=== PATIENT | female | born 1935 | race Hispanic/Latino ===

== ENCOUNTER → 2017-04-17 | Outpatient (CLI) | payer MEDICARE, OTHER ==
--- NOTE | 2017-04-23 08:20 | Diagnostic Imaging Report ---
#[id number] - MGSCRNBI #BILATERAL DIGITAL SCREENING MAMMOGRAM WITH CAD: 04/17/2017 CLINICAL: Routine screening. Comparison is made to exams dated: 04/30/2016 mammogram, 05/08/2015 mammogram and 05/31/2014 mammogram - [facility]. Current study contains 4 films. The tissue of both breasts is heterogeneously dense. This may lower the sensitivity of mammography. Current study was also evaluated with a Computer Aided Detection (CAD) system. There are benign vascular calcifications in both breasts. There also are benign scattered calcifications in both breasts. A cardiac device now is present in the left chest wall. No significant masses, calcifications, or other findings are seen in either breast. There has been no significant interval change. IMPRESSION: BENIGN There is no mammographic evidence of malignancy. A 1 year screening mammogram is recommended. The patient will be notified by letter of the results. Tobias Nicole Jr., D.O. cw/:04/22/2017 13:22:22 Beach Lifeguard: Nissa KOLB(Rosa)(M), [facility] letter sent: Compared to Prior B9 Mammogram BI-RADS: 2 Benign
== END ==
LOC: MAMMO 09:38
PROVIDERS: ATTEND Internal Medicine
DX: Z12.31 Encounter for screening mammogram for malignant neoplasm of breast (principal)
CPT/HCPCS: 77067

== ENCOUNTER 2017-05-29 20:55 | Emergency (ER) | payer MEDICARE, OTHER ==
[~2017-05-29] VITALS: Ht 152.4 cm; Wt 79.8 kg
--- OUTSIDE RECORDS SUMMARY | 2017-05-29 20:57 | XMS REPORT ---
[facility] Address Unknown Phone Unavailable Care Team Providers Care Embosser Apprentice Name Role Phone JOHNNIE HUBBARD Unavailable Unavailable Problems This patient has no known problems. Allergies, Adverse Reactions, Alerts This patient has no known allergies or adverse reactions. Medications This patient has no known medications. Results Test Description Test Time Test Comments Text Results Atomic Results Result Comments MAMMOGRAM DIGITAL SCR BI [place] [id number] Patient Name: MARVIN CORTEZ MR #: [id number] : 1935 Age/Sex: 82/F Req #: [id number] [facility] Physician: Ordered by: JOHNNIE HUBBARD MD Report #: [id number] Location: MAMMO Room/Bed: Procedure: [id number] MG/MAMMOGRAM DIGITAL SCR BI Exam Date: 04/17/17 Exam Time: 0940 REPORT STATUS: Signed #[id number] - MGSCRNBI #BILATERAL DIGITAL SCREENING MAMMOGRAM WITH CAD: 04/17/2017 CLINICAL : Routine screening. Comparison is made to exams dated: 04/30/2016 mammogram, 05/08/2015 mammogram and 05/31/2014 mammogram - [facility]. Current study contains 4 films. The tissue of both breasts is heterogeneously dense. This may lower the sensitivity of mammography. Current study was also evaluated with a Computer Aided Detection (CAD) system. There are benign vascular calcifications in both breasts. There also are benign scattered calcifications in both breasts. A cardiac device now is present in the left chest wall. No significant masses, calcifications, or other findings are seen in either breast. There has been no significant interval change. IMPRESSION: BENIGN There is no mammographic evidence of malignancy. A 1 year screening mammogram is recommended. The patient will be notified by letter of the results. Genevieve Nicole Jr., D.O. cw/:04/22/2017 13:22:22 Packaging Sales Consultant: Nissa KOLB(Rosa)(M), [facility] letter sent: Compared to Prior B9 Mammogram BI-RADS: 2 Benign Dictated By: GENEVIEVE NICOLE DO 1322 Transcribed By: CRISS on 1322 COPY TO: JOHNNIE HUBBARD MD
--- NOTE | 2017-05-29 22:08 | Diagnostic Imaging Report ---
EXAMINATION: Head CT without contrast. HISTORY:Status post fall. COMPARISON:None. TECHNIQUE: Multidetector axial images were obtained from the foramen magnum to the vertex without contrast. The images were reconstructed using brain and bone algorithms. Thin section brain images were reformatted into coronal and sagittal planes. Intravenous contrast: None IMAGE QUALITY: Acceptable. FINDINGS: Skull/scalp: Small posterior parieto-occipital scalp edema/hematoma. No acute depressed or displaced calvarial fracture. Parenchyma: Nonspecific few, scattered supratentorial white matter hypodensity are likely related to small vessel ischemic changes. No acute hemorrhage, mass or acute major vascular territorial infarct. Arteries: No density suggestive of thrombosis. Dural sinuses: No abnormal density suggestive of thrombosis. Ventricles: No hydrocephalus or displacement. Extra-axial spaces: No abnormal density. Brain volume: Normal for age. Craniocervical junction: No mass, Chiari malformation, or basilar invagination. Sella: No mass. Paranasal/mastoid sinuses: Imaged portions unremarkable. IMPRESSION: 1. Small posterior parieto-occipital scalp edema. No acute fracture. 2. No acute posttraumatic intracranial abnormality. 3. Mild supratentorial white matter microvascular ischemic changes. Signed by: Dr. Mariana Bernardo M.D. on 05/29/2017 10:05 PM
--- NOTE | 2017-05-29 22:14 | Diagnostic Imaging Report ---
History: Status post fall. Comparison studies: None Technique: Axial images were obtained through the cervical region.. Coronal and sagittal images reconstructed from the axial data.. Intravenous contrast: None Findings: Fractures: None. Soft tissue injuries: None. Atlantoaxial articulation: Intact. Alignment: Loss of normal cervical lordosis is either positional or due to muscle spasm. Mild levocurvature of the cervical spine is positional, head is tilted. Cervicomedullary junction: No abnormalities. The foramen magnum is patent. Soft tissues: Atherosclerotic calcification in bilateral carotid bulb. Vertebrae: Diffuse osseous demineralization. No fractures, infection or neoplasm. Degenerative changes: C3-C4: Posterior disc osteophyte complex results in mild canal stenosis. Mild right foraminal stenosis due to facet and uncovertebral arthrosis. C4-C5: Posterior disc osteophyte complex without canal stenosis. Mild right foraminal stenosis due to facet and uncovertebral arthrosis. C6-C7: Mild right foraminal stenosis due to facet and uncovertebral arthrosis.. IMPRESSION: 1. No acute cervical spine fracture. Loss of normal cervical lordosis is either positional or due to muscle spasm. 2. Ligament, spinal cord and or vascular abnormalities cannot be excluded on the basis of this examination. 3. Mild cervical spondylosis as detailed above. Signed by: Dr. Mariana Bernardo M.D. on 05/29/2017 10:10 PM
[2017-05-29 22:29] LABS: BASOPHILS % 0.4 % (0.0-1.0); EOSINOPHILS # (AUTO) 0.1 (0.0-0.4); EOSINOPHILS % 2.4 % (0.0-6.0); HEMATOCRIT 32.1 % (34.2-44.1); HEMOGLOBIN 10.2 g/dL (12.0-16.0); LYMPHOCYTES # (AUTO) 1.5 (1.0-3.2); LYMPHOCYTES % 28.7 % (18.0-39.1); MEAN CORPUSCULAR HEMOGLOBIN 29.6 pg (28-32); MEAN CORPUSCULAR HGB CONC 31.8 g/dL (31-35); MONOCYTES # (AUTO) 0.4 (0.2-0.8); MONOCYTES % 7.3 % (4.4-11.3); NEUTROPHILS # (AUTO) 3.3 (2.1-6.9); PLATELET COUNT 190 x10e3/uL (140-360); RED BLOOD COUNT 3.45 x10e6/uL (3.6-5.1); RED CELL DISTRIBUTION WIDTH 15.3 % (11.7-14.4)
[2017-05-29 22:38] LABS: INR 1.07; PARTIAL THROMBOPLASTIN TIME 32.8 seconds (23.8-35.5); PROTHROMBIN TIME 13.1 seconds (11.9-14.5)
[2017-05-29 22:48] LABS: ALBUMIN 3.5 g/dL (3.5-5.0); ALBUMIN/GLOBULIN RATIO 1.1 (0.8-2.0); ANION GAP 11.4 mmol/L (8-16); CALCIUM 10.1 mg/dL (8.4-10.2); CREATININE, SERUM 1.07 mg/dL (0.57-1.11); POTASSIUM 4.4 mmol/L (3.5-5.1)
[2017-05-29 23:48] VITALS: BP 166/86
== END 2017-05-29 23:55 | disposition home or self-care (01) ==
LOC: ER 20:55
DX: S16.1XXA Strain of muscle, fascia and tendon at neck level, initial encounter (principal); S00.03XA Contusion of scalp, initial encounter; W01.0XXA Fall on same level from slipping, tripping and stumbling without subsequent striking against object, initial encounter; Y93.01 Activity, walking, marching and hiking; Y92.410 Unspecified street and highway as the place of occurrence of the external cause; Z79.01 Long term (current) use of anticoagulants; I10 Essential (primary) hypertension; Z95.0 Presence of cardiac pacemaker
CPT/HCPCS: 36415; 70450; 72125; 80053; 85025; 85610; 85730; 93005; 99284

== ENCOUNTER 2017-06-15 17:51 | Emergency (ER) | payer MEDICARE, OTHER ==
[~2017-06-15] VITALS: Ht 152.4 cm; Wt 79.8 kg
--- OUTSIDE RECORDS SUMMARY | 2017-06-15 17:53 | XMS REPORT | Continuity of Care Document ---
Author Author [facility] Organization [facility] Address [address] [place] [address] Phone Unavailable Care Team Providers Care Vocational Aide Name Role Phone JOHNNIE HUBBARD MD PCP Insurance Providers Guarantor Pat Cortez Address [address] [place] [address] Email [email or web address] [employer] Policy Number [id number] Subscriber's Name CortezPat richardson Relationship 18 Self / Same As Patient Group Name RETIRED Effective Date 14 [facility] [employer] Improvement [employer] Policy Number [id number] Subscriber's Name Pat Cortez Relationship 18 Self / Same As Patient Group Number [id number] Group Name RETIRED Effective Date 01 Advance Directives Directive Response Recorded Date/Time Does the patient have an advance directive? No 07/05/08 3:20am If yes, is advance directive on file with [facility]? No 07/05/08 3:20am If not on file with [facility] will patient provide a copy? Yes 05/29/17 10:38pm Do you have a Directive to Physician? No 05/29/17 10:38pm Do you have a Medical Power of Filling And Stapling Machine Operator? No 05/29/17 10:38pm Do you have an out of hospital Do Not Resuscitate Order? No 05/29/17 10:38pm Do you have any special needs we should be aware of? No 05/29/17 10:38pm Do you have a support person here with you today? Yes 05/29/17 10:38pm Did patient receive Notice of Privacy Practices? Yes 05/29/17 10:38pm Did patient receive patient rights and responsibilities? Yes 05/29/17 10:38pm Problems No problem information available. Medications No medication information available. Social History No social history information available. Hospital Discharge Instructions No hospital discharge instruction information available. Plan of Care Discharge Date 05/29/17 11:55pm Disposition HOME, SELF-CARE Condition at Discharge Stable Instructions/Education Provided Concussion/Head Injury - Adult Forms Provided Work/School Excuse Prescriptions See Medication Section Referrals JOHNNIE HUBBARD MD Address: [address] [place] [id number] Additional Instructions/Education REST; ICE WOUND ON HEAD NEEDED; TYLENOL/MOTRIN FOR PAIN; FOLLOW UP WITH YOUR PCP; Functional Status No functional status information available. Allergies, Adverse Reactions, Alerts No known allergies. Immunizations No immunization information available. Vital Signs Acute Vital Signs Vital Response Date/Time Pulse Pulse Rate (adult) 60 bpm (60 - 90) 05/29/2017 11:48pm Respiratory Rate 16 bpm (12 - 24) 05/29/2017 11:48pm Blood Pressure 166/86 mm Hg 05/29/2017 11:48pm Height 5 ft 0 in 05/29/2017 9:00pm Weight 176 lb 05/29/2017 9:00pm Body Mass Index 34.4 kg/m^2 05/29/2017 9:00pm Results Laboratory Results Test Name Result Units Flags Reference Collection Date/Time Result Date/ Time Comments White Blood Count 5.33 x10e3/uL 4.8-10.8 05/29/2017 9:48pm 05/29/2017 10:30pm Red Blood Count 3.45 x10e6/uL L 3.6-5.1 05/29/2017 9:48pm 05/29/2017 10: 30pm Hemoglobin 10.2 g/dL L 12.0-16.0 05/29/2017 9:48pm 05/29/2017 10:30pm Hematocrit 32.1 % L 34.2-44.1 05/29/2017 9:48pm 05/29/2017 10:30pm Mean Corpuscular Volume 93.0 fL 81-99 05/29/2017 9:48pm 05/29/2017 10: 30pm Mean Corpuscular Hemoglobin 29.6 pg 28-32 05/29/2017 9:48pm 05/29/2017 10:30pm Mean Corpuscular Hemoglobin Concent 31.8 g/dL 31-35 05/29/2017 9:48pm 05/29/2017 10:30pm Red Cell Distribution Width 15.3 % H 11.7-14.4 05/29/2017 9:48pm 2017 10:30pm Platelet Count 190 x10e3/uL 140-360 05/29/2017 9:48pm 05/29/2017 10: 30pm Neutrophils (%) (Auto) 61.0 % 38.7-80.0 05/29/2017 9:48pm 05/29/2017 10 :30pm Lymphocytes (%) (Auto) 28.7 % 18.0-39.1 05/29/2017 9:48pm 05/29/2017 10 :30pm Monocytes (%) (Auto) 7.3 % 4.4-11.3 05/29/2017 9:48pm 05/29/2017 10: 30pm Eosinophils (%) (Auto) 2.4 % 0.0-6.0 05/29/2017 9:48pm 05/29/2017 10: 30pm Basophils (%) (Auto) 0.4 % 0.0-1.0 05/29/2017 9:48pm 05/29/2017 10: 30pm IM GRANULOCYTES % 0.2 % 0.0-1.0 05/29/2017 9:48pm 05/29/2017 10:30pm Neutrophils # (Auto) 3.3 2.1-6.9 05/29/2017 9:48pm 05/29/2017 10: 30pm Lymphocytes # (Auto) 1.5 1.0-3.2 05/29/2017 9:48pm 05/29/2017 10: 30pm Monocytes # (Auto) 0.4 0.2-0.8 05/29/2017 9:48pm 05/29/2017 10:30pm Eosinophils # (Auto) 0.1 0.0-0.4 05/29/2017 9:48pm 05/29/2017 10: 30pm Basophils # (Auto) 0.0 0.0-0.1 05/29/2017 9:48pm 05/29/2017 10:30pm Absolute Immature Granulocyte (auto 0.01 x10e3/uL 0-0.1 05/29/2017 9: 48pm 05/29/2017 10:30pm Prothrombin Time 13.1 seconds 11.9-14.5 05/29/2017 9:48pm 05/29/2017 10 :38pm Prothromb Time International Ratio 1.07 05/29/2017 9:48pm 2017 10:38pm Oral Anticoagulant Therapy INR Values: 1. Low Intensity Therapy 1.5 - 2.0 2. Moderate Intensity Therapy 2.0 - 3.0 3. High Intensity Therapy(1) 2.5 - 3.5 4. High Intensity Therapy(2) 3.0 - 4.0 5. Panic Value INR > 5.0 Activated Partial Thromboplast Time 32.8 seconds 23.8-35.5 05/29/2017 9: 48pm 05/29/2017 10:39pm Sodium Level 142 mmol/L 136-145 05/29/2017 9:48pm 05/29/2017 10:49pm Potassium Level 4.4 mmol/L 3.5-5.1 05/29/2017 9:48pm 05/29/2017 10: 49pm Chloride Level 113 mmol/L H 98-107 05/29/2017 9:48pm 05/29/2017 10:49pm Carbon Dioxide Level 22 mmol/L 22-29 05/29/2017 9:48pm 05/29/2017 10: 49pm Anion Gap 11.4 mmol/L 8-16 05/29/2017 9:48pm 05/29/2017 10:49pm Blood Urea Nitrogen 21 mg/dL 7-05/29/2017 9:48pm 05/29/2017 10:49pm Creatinine 1.07 mg/dL 0.57-1.11 05/29/2017 9:48pm 05/29/2017 10:49pm BUN/Creatinine Ratio 20 6-25 05/29/2017 9:48pm 05/29/2017 10:49pm Estimat Glomerular Filtration Rate 49 ML/MIN L 60- 05/29/2017 9:48pm 01/2018 10:49pm Ranges were taken from the National Kidney Disease Education Program and the National Kid[employer] literature. Reference ranges: 60 or greater: Normal 16-59 (for 3 consecutive months): Chronic kidney disease 15 or less: Kidney failure Glucose Level 98 mg/dL 74-118 05/29/2017 9:48pm 05/29/2017 10:49pm Calcium Level 10.1 mg/dL 8.4-10.2 05/29/2017 9:48pm 05/29/2017 10:49pm Total Bilirubin 0.2 mg/dL 0.2-1.2 05/29/2017 9:48pm 05/29/2017 10:49pm Aspartate Amino Transf (AST/SGOT) 18 IU/L 5-34 05/29/2017 9:48pm 2017 10:49pm Alanine Aminotransferase (ALT/SGPT) 17 IU/L 0-55 05/29/2017 9:48pm 01/2018 10:49pm Total Protein 6.8 g/dL 6.5-8.1 05/29/2017 9:48pm 05/29/2017 10:49pm Albumin 3.5 g/dL 3.5-5.0 05/29/2017 9:48pm 05/29/2017 10:49pm Globulin 3.3 g/dL 2.3-3.5 05/29/2017 9:48pm 05/29/2017 10:49pm Albumin/Globulin Ratio 1.1 0.8-2.0 05/29/2017 9:48pm 05/29/2017 10: 49pm Alkaline Phosphatase 88 IU/L 40-150 05/29/2017 9:48pm 05/29/2017 10: 49pm Procedures Procedure Status Date Provider(s) Computed tomography of brain without radiopaque contrast Active 05/29/17 TEE KEATING NP Computed tomography of cervical spine without contrast Active 05/29/17 LUIS MIGUEL MARTINEZ MD Encounters Encounter Location Arrival/Admit Date Discharge/Depart Date Attending Provider Registered Emergency Room [facility] 05/29/17 8:55pm LUIS MIGUEL MARTINEZ MD Registered Clinic [facility] 04/17/17 9:38am JOHNNIE HUBBARD MD
[2017-06-15] MEDS ORDERED: TRAMADOL HCL 50 MG TAB PO ONE (18:15)
[2017-06-15] MEDS ORDERED: IBUPROFEN 600 MG TAB PO STA (18:30)
--- NOTE | 2017-06-15 20:12 | Diagnostic Imaging Report ---
FOOT RIGHT COMPLETE HISTORY: Pain fracture COMPARISON: None FINDINGS: Bones: No displaced fracture. Osseous alignment is within normal limits. Mild demineralization. Joints: Scattered degenerative changes of the mid and forefoot. Soft tissues: The soft tissues appear unremarkable. IMPRESSION: No acute radiographic abnormality. Signed by: Dr. Carmelo Estrada M.D. on 06/15/2017 8:09 PM
[2017-06-15 21:02] VITALS: BP 163/74
== END 2017-06-15 20:29 | disposition home or self-care (01) ==
LOC: ER 17:51
DX: S90.111A Contusion of right great toe without damage to nail, initial encounter (principal); W22.8XXA Striking against or struck by other objects, initial encounter; Y92.008 Other place in unspecified non-institutional (private) residence as the place of occurrence of the external cause; I10 Essential (primary) hypertension; E11.9 Type 2 diabetes mellitus without complications; E78.5 Hyperlipidemia, unspecified; Z95.810 Presence of automatic (implantable) cardiac defibrillator
CPT/HCPCS: 99284

== ENCOUNTER → 2018-05-05 | Outpatient (CLI) | payer MEDICARE, OTHER | LOC: MAMMO 12:52 | PROVIDERS: ATTEND Internal Medicine | DX: Z12.31 Encounter for screening mammogram for malignant neoplasm of breast (principal) | CPT/HCPCS: 77067 ==

== ENCOUNTER → 2021-04-26 | Outpatient (CLI) | payer MEDICARE | LOC: MAMMO 09:40 | PROVIDERS: ATTEND Internal Medicine | DX: N63.10 Unspecified lump in the right breast, unspecified quadrant (principal); N64.4 Mastodynia | CPT/HCPCS: 77066 ==

== ENCOUNTER → 2021-05-08 | Outpatient (CLI) | payer MEDICARE | LOC: US 09:30 | PROVIDERS: ATTEND Internal Medicine | DX: N63.10 Unspecified lump in the right breast, unspecified quadrant (principal) | CPT/HCPCS: 88305; A4648 ==

== ENCOUNTER 2021-05-24 06:05 | Observation (INO) | payer MEDICARE, OTHER ==
[2021-05-22 10:24] LABS: BASOPHILS # (AUTO) 0.1 (0.0-0.1); BASOPHILS % 0.7 % (0.0-1.0); EOSINOPHILS # (AUTO) 0.2 (0.0-0.4); EOSINOPHILS % 2.3 % (0.0-6.0); HEMOGLOBIN 11.5 g/dL (12.0-16.0); LYMPHOCYTES # (AUTO) 1.6 (1.0-3.2); LYMPHOCYTES % 21.5 % (18.0-39.1); MEAN CORPUSCULAR HEMOGLOBIN 30.7 pg (28-32); MEAN CORPUSCULAR HGB CONC 31.1 g/dL (31-35); MEAN CORPUSCULAR VOLUME 98.7 fL (81-99); MONOCYTES # (AUTO) 0.6 (0.2-0.8); MONOCYTES % 7.6 % (4.4-11.3); NEUTROPHILS # (AUTO) 4.9 (2.1-6.9); NEUTROPHILS % 67.6 % (38.7-80.0); PLATELET COUNT 183 x10e3/uL (140-360); RED BLOOD COUNT 3.75 x10e6/uL (3.6-5.1); RED CELL DISTRIBUTION WIDTH 13.5 % (11.7-14.4)
[2021-05-22 10:58] LABS: ALBUMIN 3.6 g/dL (3.5-5.0); ALBUMIN/GLOBULIN RATIO 1.1 (0.8-2.0); ANION GAP 8.9 mmol/L (8-16); CALCIUM 10.9 mg/dL (8.4-10.2); POTASSIUM 4.9 mmol/L (3.5-5.1)
[~2021-05-24] VITALS: Ht 160 cm; Wt 74.4 kg
[~2021-05-24 06:05] MED LIST: ALENDRONATE SOD70 MG PO; ALTOPREV40 MG PO; AMLODIPINE BESYL5 MG PO; ARICEPT5 MG PO; CLONIDINE HCL0.2 MG PO; ELIQUIS5 MG PO; GLIMEPIRIDE2 MG PO; LOSARTAN POTAS100 MG PO; METOPROLOL SUCC25 MG PO; NAMENDA10 MG PO; OXYBUTYNIN CHLOR5 MG PO; ULTRAM 50MG50 MG PO; VESICARE5 MG PO
[2021-05-24] MEDS ORDERED: BUPIVACAINE HCL 0.25% 10ML MPF VIAL INJ ONE (10:00)
[2021-05-24] MEDS ORDERED: LIDOCAINE HCL 2% LOCAL INJ 5 ML SDV VIAL INJ ONE (12:15)
[2021-05-24] MEDS ORDERED: DEXAMETHASONE SOD PHOS INJ 4 MG/ML SDV ONE (12:15)
[2021-05-24] MEDS ORDERED: KETOROLAC TROMETHAMINE 30 MG/ML VIAL ONE (12:15)
[2021-05-24] MEDS ORDERED: PROPOFOL IV EMULSION 10 MG/ML 20 ML VIAL ONE (12:15)
[2021-05-24] MEDS ORDERED: ONDANSETRON HCL INJ 2MG/ML 2ML 2 MG/ML VIAL ONE (12:15)
[2021-05-24] MEDS ORDERED: SEVOFLURANE INHAL SOLN 250 ML PEN BTL ONE (12:15)
[2021-05-24] MEDS ORDERED: POVIDONE IODINE 0.05% 0.05 % ML PO ONE (12:15)
[2021-05-24] MEDS ORDERED: MIDAZOLAM HCL 2 MG/2 ML VIAL ONE (13:14)
[2021-05-24] MEDS ORDERED: FENTANYL CITRATE/PF 100MCG/2 ML INJ ONE ×2 (13:14→14:24)
[2021-05-24] MEDS ORDERED: CLONIDINE HCL 0.1 MG TAB PO PRN (13:15)
[2021-05-24] MEDS ORDERED: ACETAMINOPHEN/CODEINE 300MG - 30MG TAB PO PRN (13:15)
[2021-05-24] MEDS ORDERED: ONDANSETRON HCL INJ 2MG/ML 2ML 2 MG/ML VIAL IV PRN (13:15)
[2021-05-24 17:09] VITALS: BP 162/74
[2021-05-24 17:17] VITALS: BP 162/74
[2021-05-24] MEDS: TRAMADOL HCL 50 MG TAB PO SCH ×2 (17:30→20:55)
[2021-05-24] MEDS: Cefoxitin 1 GM in SODIUM CHLORIDE 0.9% 50ML 50 ML IV SCH (17:42)
[2021-05-24] MEDS: SODIUM CHLORIDE 0.9% 1000ML 1,000 ML IV SCH (17:42)
[2021-05-24] MEDS: MEMANTINE 10 MG TAB PO SCH (17:51)
[2021-05-24] MEDS: OXYBUTYNIN CHLORIDE 5 MG TAB PO SCH (17:51)
[2021-05-24] MEDS: AMLODIPINE BESYLATE 5 MG TAB PO SCH (18:42)
[2021-05-24 20:00] VITALS: BP 105/65
[2021-05-24] MEDS ORDERED: DONEPEZIL HCL 5 MG TAB PO SCH (21:00)
[2021-05-25] VITALS: BP 100/57
[2021-05-25] MEDS: Cefoxitin 1 GM in SODIUM CHLORIDE 0.9% 50ML 50 ML IV SCH ×2
[2021-05-25 04:00] VITALS: BP 120/55
[2021-05-25 05:55] LABS: BASOPHILS % 0.3 % (0.0-1.0); HEMATOCRIT 27.3 % (34.2-44.1); HEMOGLOBIN 8.5 g/dL (12.0-16.0); LYMPHOCYTES % 12.3 % (18.0-39.1); MEAN CORPUSCULAR HEMOGLOBIN 30.7 pg (28-32); MEAN CORPUSCULAR HGB CONC 31.1 g/dL (31-35); MEAN CORPUSCULAR VOLUME 98.6 fL (81-99); MONOCYTES # (AUTO) 0.6 (0.2-0.8); MONOCYTES % 7.8 % (4.4-11.3); NEUTROPHILS # (AUTO) 6.2 (2.1-6.9); NEUTROPHILS % 79.2 % (38.7-80.0); PLATELET COUNT 165 x10e3/uL (140-360); RED BLOOD COUNT 2.77 x10e6/uL (3.6-5.1); RED CELL DISTRIBUTION WIDTH 13.1 % (11.7-14.4)
[2021-05-25 06:19] LABS: ANION GAP 9.3 mmol/L (8-16); CREATININE, SERUM 1.31 mg/dL (0.57-1.11); POTASSIUM 4.3 mmol/L (3.5-5.1)
[2021-05-25] MEDS: SODIUM CHLORIDE 0.9% 1000ML 1,000 ML IV SCH ×2 (06:43→09:15)
[2021-05-25] MEDS ORDERED: GLIMEPIRIDE 2 MG TAB PO SCH (07:30)
[2021-05-25 07:38] VITALS: BP 104/58
[2021-05-25 08:00] VITALS: BP 104/58
[2021-05-25] MEDS ORDERED: METOPROLOL SUCCINATE 25 MG TAB XL PO SCH (09:00)
[2021-05-25] MEDS ORDERED: SOLIFENACIN SUCCINATE 5 MG TAB PO SCH (09:00)
[2021-05-25] MEDS ORDERED: LOSARTAN POTASSIUM 100 MG TAB PO SCH (09:00)
[2021-05-25] MEDS: AMLODIPINE BESYLATE 5 MG TAB PO SCH (09:00)
[2021-05-25] MEDS: MEMANTINE 10 MG TAB PO SCH (09:06)
[2021-05-25] MEDS: OXYBUTYNIN CHLORIDE 5 MG TAB PO SCH (09:06)
[2021-05-25] MEDS: TRAMADOL HCL 50 MG TAB PO SCH (09:07)
== END 2021-05-25 11:30 | disposition home or self-care (01) ==
LOC: NM 06:05 → EDSTATUS 12:00 → PACU V 14:02 → MED/SURG 16:13
PROVIDERS: ADMIT Surgery; ATTEND Surgery
DX: C50.911 Malignant neoplasm of unspecified site of right female breast (principal); I10 Essential (primary) hypertension; E11.9 Type 2 diabetes mellitus without complications; Z20.822 Contact with and (suspected) exposure to COVID-19; Z01.818 Encounter for other preprocedural examination
CPT/HCPCS: 19307; 36415 ×3; 71046; 78195; 80048; 80053; 82948 ×2; 85025 ×2; 88304; A9541; G0378 ×2; J0694; J2250; J3010; J7030 ×2; U0002; 88307; 88342; J1100; J1885; J2001; J2405

== ENCOUNTER → 2023-12-26 | Day surgery (SDC) | payer MEDICARE, OTHER ==
[~2023-12-26] MED LIST changes: +ACETAMINOPHEN 1000 MG/100 ML 100 ML IV ONE; +CEFTRIAXONE 1 GM VIAL ONE; +DEXAMETHASONE SOD PHOS INJ 4 MG/ML SDV ONE; +ETOMIDATE 40 MG/ 20ML VIAL IV ONE; +IOPAMIDOL 610MG/1ML 300 MG/ML VIAL IV ONE; +LIDOCAINE HCL 2% LOCAL INJ 5 ML SDV VIAL INJ ONE; +NIFEDIPINE ER60 M1 PO; +ONDANSETRON HCL INJ 2MG/ML 2ML 2 MG/ML VIAL ONE; +PANTOPRAZOLE SO40 MG PO; +PROPOFOL IV EMULSION 10 MG/ML 20 ML VIAL ONE; +SYNTHROID50 MCG PO; +TROSPIUM CHLORI20 MG PO
[2023-12-26] MEDS: LACTATED RINGER'S 1,000 ML ONE (11:07)
[2023-12-26 11:14] LABS: BASOPHILS % 0.7 % (0.0-1.0); EOSINOPHILS # (AUTO) 0.3 (0.0-0.4); EOSINOPHILS % 5.6 % (0.0-6.0); HEMOGLOBIN 11.4 g/dL (12.0-16.0); LYMPHOCYTES # (AUTO) 1.5 (1.0-3.2); LYMPHOCYTES % 26.9 % (18.0-39.1); MEAN CORPUSCULAR HEMOGLOBIN 31.7 pg (28-32); MEAN CORPUSCULAR HGB CONC 30.8 g/dL (31-35); MEAN CORPUSCULAR VOLUME 102.8 fL (81-99); MONOCYTES # (AUTO) 0.4 (0.2-0.8); MONOCYTES % 6.7 % (4.4-11.3); NEUTROPHILS # (AUTO) 3.3 (2.1-6.9); NEUTROPHILS % 59.9 % (38.7-80.0); PLATELET COUNT 203 x10e3/uL (140-360); RED CELL DISTRIBUTION WIDTH 13.1 % (11.7-14.4); WHITE BLOOD COUNT 5.53 x10e3/uL (4.8-10.8)
[2023-12-26 11:27] LABS: INR 0.91; PROTHROMBIN TIME 12.8 seconds (11.9-14.5)
[2023-12-26 11:28] LABS: PARTIAL THROMBOPLASTIN TIME 31.5 seconds (23.8-35.5)
[2023-12-26 11:35] LABS: ANION GAP 12.5 mmol/L (8-16); CALCIUM 11.2 mg/dL (8.4-10.2); CREATININE, SERUM 1.1 mg/dL (0.57-1.11); POTASSIUM 4.5 mmol/L (3.5-5.1)
[2023-12-26 13:45] VITALS: BP 174/81; PULSE 61; RESP 18; O2SAT 99
== END | disposition home or self-care (01) ==
LOC: OR 10:53
PROVIDERS: ATTEND Urology
DX: N39.0 Urinary tract infection, site not specified (principal); N81.3 Complete uterovaginal prolapse; N95.2 Postmenopausal atrophic vaginitis; E11.9 Type 2 diabetes mellitus without complications; I25.10 Atherosclerotic heart disease of native coronary artery without angina pectoris; I10 Essential (primary) hypertension; E03.9 Hypothyroidism, unspecified; E78.5 Hyperlipidemia, unspecified; K21.9 Gastro-esophageal reflux disease without esophagitis; G30.9 Alzheimer's disease, unspecified; F02.80 Dementia in other diseases classified elsewhere, unspecified severity, without behavioral disturbance, psychotic disturbance, mood disturbance, and anxiety; Z88.8 Allergy status to other drugs, medicaments and biological substances; Z79.84 Long term (current) use of oral hypoglycemic drugs; Z79.899 Other long term (current) drug therapy; Z95.5 Presence of coronary angioplasty implant and graft
CPT/HCPCS: 36415; 74420; 80048; 82948; 85025; 85610; 85730; C1758; C1769; J0696; J1100; J2003; J2405